=== PATIENT | female | born 1960 | race Caucasian/White ===

== ENCOUNTER 2018-04-01 01:16 | Emergency (ER) | payer OTHER ==
[~2018-04-01] VITALS: Ht 167.6 cm; Wt 106.6 kg
[2018-04-01] MEDS ORDERED: LEVO25TA9 PO (01:29)
[2018-04-01] MEDS ORDERED: LISI2.5T2 PO (01:29)
[2018-04-01] MEDS ORDERED: ESOM20CA PO (01:29)
--- NOTE | 2018-04-01 01:42 | NUR ---
Dr. Klein at bedside for MSE.
[2018-04-01] MEDS ORDERED: HYDROMORPHONE 2 MG/1 ML DISP.SYRIN ONE (01:44)
[2018-04-01] MEDS ORDERED: ONDANSETRON ODT 4 MG TAB.RAPDIS ONE (01:49)
[2018-04-01] MEDS ORDERED: HYDROMORPHONE 1 MG/1 ML DISP.SYRIN IM ONE (02:00)
[2018-04-01] MEDS ORDERED: ONDANSETRON ODT 4 MG TAB.RAPDIS SL ONE (02:00)
--- NOTE | 2018-04-01 02:18 | NUR ---
Xray at bedside.
--- NOTE | 2018-04-01 02:24 | NUR ---
Pt states has no pain as long as shoulder is not moved, but when moved still 10/10.
--- NOTE | 2018-04-01 02:30 | NUR ---
Placed patient on shoulder immobilizer. CMS intact.
[2018-04-01] MEDS ORDERED: KETOROLAC TROMETHAMINE 30 MG INJ ONE (02:52)
[2018-04-01] MEDS ORDERED: KETOROLAC TROMETHAMINE 30 MG INJ IM ONE (03:00)
--- NOTE | 2018-04-01 03:15 | NUR ---
Pt's oxygen 89% on room air, placed patient on 2L O2 via nasal cannula.
--- NOTE | 2018-04-01 04:00 | NUR ---
Pt sleeping in bed, no acute signs of distress.
--- NOTE | 2018-04-01 05:00 | NUR ---
Pt sleeping in bed, no acute signs of distress
--- NOTE | 2018-04-01 06:00 | NUR ---
Pt sleeping in bed, no acute signs of distress.
--- NOTE | 2018-04-01 07:18 | NUR ---
SBAR report passed to Shahla JANE.
--- NOTE | 2018-04-01 07:30 | NUR ---
patient is sleepy but arouses easy. Sp02 >98%. on monitor.
--- NOTE | 2018-04-01 08:57 | NUR ---
PATIENT STATES HER RIDE SHOULD BE HERE "ANY MINUTE".
--- NOTE | 2018-04-01 09:30 | NUR ---
DC, RX AND FOLLOW UP INSTRUCTIONS GIVEN AND EXPLAINED TO PATIENT WHO STATES SHE UNDERSTANDS ALL INSTRUCTIONS. INSTRUCTED NOT TO DRIVE.
--- NOTE | 2018-04-01 09:31 | NUR ---
PATIENTS MOTHER AT BEDSIDE TO DRIVE HER HOME.
== END 2018-04-01 09:31 | disposition home or self-care (01) ==
LOC: ER 01:19
DX: M75.31 Calcific tendinitis of right shoulder (principal); M54.12 Radiculopathy, cervical region; E78.5 Hyperlipidemia, unspecified; E11.9 Type 2 diabetes mellitus without complications; I10 Essential (primary) hypertension; Z88.0 Allergy status to penicillin; Z88.5 Allergy status to narcotic agent; Z88.8 Allergy status to other drugs, medicaments and biological substances; Z79.899 Other long term (current) drug therapy
CPT/HCPCS: 73030; A4663; J1170; J1885; Q0162